=== PATIENT | female | born 1960 | race African-American/Black ===

== ENCOUNTER 2018-05-19 12:32 | Outpatient (CLI) | END 2018-05-19 12:50 | disposition short-term general hospital (02) | LOC: AMBL 12:32 | PROVIDERS: ATTEND Internal Medicine Geriatric Medicine | DX: T43.212A Poisoning by selective serotonin and norepinephrine reuptake inhibitors, intentional self-harm, initial encounter (principal); R40.20 Unspecified coma; T51.0X2A Toxic effect of ethanol, intentional self-harm, initial encounter ==